=== PATIENT | female | born 1980 | race African-American/Black ===

== ENCOUNTER 2016-07-31 22:05 | Emergency (ER) | payer OTHER ==
[2016-07-31 23:18] LABS: BASOPHIL 0.2 % (0-2); EOSINOPHIL 0.7 % (0-5); HCT 30.9 % (37.0-47.0); HGB 9.8 g/dl (12.5-16.0); LYMPHOCYTE 16.3 % (15-48); MCH 23.6 pg (25.0-31.0); MCHC 31.7 g/dL (32.0-36.0); MCV 74.5 fL (78.0-100.0); MONOCYTE 6.9 % (0-12); NEUTROPHIL 75.9 % (41-80); PLT 183 K/uL (150-400); RBC 4.15 M/uL (4.20-5.40); RDW 15.2 % (11.5-14.0); WBC 5.6 K/uL (4.0-10.5)
[2016-07-31 23:35] LABS: ALBUMIN 4.3 g/dL (3.5-5.0); BILIRUBIN - TOTAL 0.5 mg/dL (0.1-1.0); CREATININE 0.7 mg/dL (0.5-1.0); POTASSIUM 3.9 mmol/L (3.5-5.1); TOTAL PROTEIN 7.3 g/dL (6.4-8.3)
[2016-08-01 01:42] LABS: BILIRUBIN NEGATIVE (NEGATIVE); BLOOD NEGATIVE Ery/uL (NEGATIVE); CLARITY CLOUDY (CLEAR); COLOR YELLOW (YELLOW); GLUCOSE (U) NORMAL (NORMAL); KETONE (U) NEGATIVE (NEGATIVE); LEUKOCYTES NEGATIVE Leu/uL (NEGATIVE); NITRITE NEGATIVE (NEGATIVE); PROTEIN TRACE (LOW) mg/dL (NEGATIVE); SPECIFIC GRAVITY >=1.030 (1.001-1.030); UROBILINOGEN 0.2 mg/dL (0.2-1.0); pH 5.5 (5.0-9.0)
[2016-08-01 01:46] LABS: AMORPHOUS URATES CRYSTALS LARGE; BACTERIA TRACE
== END 2016-08-01 04:20 | disposition home or self-care (01) ==
LOC: FER 22:05
PROVIDERS: Emergency Medicine Emergency Medical Services
DX: O99.011 Anemia complicating pregnancy, first trimester (principal); O99.89 Other specified diseases and conditions complicating pregnancy, childbirth and the puerperium; R10.816 Epigastric abdominal tenderness; R82.90 Unspecified abnormal findings in urine; Z3A.08 8 weeks gestation of pregnancy
CPT/HCPCS: 36415; 80053; 81001; 82150; 83690; 84702; 85025; 87088; 99283